=== PATIENT | female | born 1945 | race Caucasian/White ===

== ENCOUNTER 2018-11-02 22:37 | Observation (INO) | payer OTHER ==
[~2018-11-02] VITALS: Ht 172.7 cm; Wt 87.6 kg
[~2018-11-02 22:37] MED LIST: CHOL400C; DULO60CA6 PO; EXEL46P TD; HYDR-877 PO; METHADONE HCL PO; NO NEW MEDS; TRAZODONE; [UNRECOGNIZED DRUG - OTHER]
[2018-11-02] MEDS ORDERED: SOD CHLORIDE 0.9% 500 ML IV STA (22:45)
[2018-11-02] MEDS ORDERED: DILTIAZEM-D5W 125MG/125ML DRIP 125 ML IV STA (22:54)
[2018-11-02] MEDS ORDERED: DILTIAZEM 25 MG INJ IV STA (22:54)
--- NOTE | 2018-11-02 23:43 | ERD ---
ER Documentation Chief Complaint Chief Complaint Weakness X 1 wk HPI This is a 72-year-old female with a past medical history of hypertension who is presenting with on and off weakness and palpitations over the last week. It recurred again this evening at around 7 PM, which is what prompted her to call an ambulance and come to the emergency department. The patient endorses feeling short of breath with palpitations and fatigue currently. She denies any chest pain. She denies lightheadedness or dizziness. She denies nausea or vomiting. She denies diaphoresis. The patient does not carry a diagnosis of an irregular heartbeat. She is not on any blood thinners. Per pin machine tender report, the patient was in atrial fibrillation with rapid ventricular response in route to the hospital with a heart rate in the 150s. The patient denies feeling sick recently. The patient denies fever or chills. The patient has had no headache or vision changes. The patient does not endorse neck or back pain. The patient denies abdominal pain. The patient denies changes to bowel movements or urination. The patient has had no focal deficits. The patient has had no weakness or numbness or tingling to the face or extremities. ROS All systems reviewed and are negative except as per history of present illness. Medications Home Meds Reported Medications Furosemide* (Furosemide*) 40 Mg Tablet, 40 MG PO DAILY for 30 Days 11/03/18 Venlafaxine Hcl* (Venlafaxine Hcl ER*) 150 Mg Cap.er.24h, 150 MG PO DAILY 11/03/18 Colchicine (Mitigare) 0.6 Mg Capsule, 0.6 MG PO DAILY 11/03/18 Trazodone Hcl* (Desyrel*) 100 Mg Tab, 100 MG PO DAILY for 30 Days, #30 11/03/18 Triamterene-HCTZ (Dyazide) 37.5 - 25 Mg Cap, 1 CAP PO DAILY for 30 Days, #30 11/03/18 Hydrocodone Bit/Acetaminophen (Vicodin Es Tablet) 1 Tab Tablet, 1 TAB PO PRN 08/29/11 Duloxetine Hcl* (Cymbalta*) 60 Mg Capsule.dr, 60 MG PO DAILY 08/29/11 Ergocalciferol (Vitamin D) 400 Unit Capsule 08/29/11 Discontinued Reported Medications [No New Meds] No Conflict Check 11/18/11 Rivastigmine* Patch (Exelon* Patch) 1 Patch Patch, 1 PATCH TD NEEDED 10/12/11 [Trazodone] No Conflict Check 08/29/11 [Tovais] No Conflict Check 08/29/11 [Methadone [id number]] LIQ No Conflict Check, 160 MG PO DAILY 08/29/11 Allergies Allergies: Coded Allergies: No Known Allergy (Unverified , 11/03/18) PMhx/Soc History of Surgery: Yes (BARRIATRIC, KNEE REPLACEMENT) Anesthesia Reaction: No Hx Neurological Disorder: No Hx Respiratory Disorders: No Hx Cardiac Disorders: Yes (A-fib) Hx Psychiatric Problems: Yes (DEPRESSION) Hx Miscellaneous Medical Probl: No Hx Alcohol Use: Yes Hx Substance Use: Yes Hx Tobacco Use: Yes Smoking Status: Former smoker FmHx Family History: No diabetes Physical Exam Vitals Vital Signs Date Temp Pulse Resp B/P (MAP) Pulse Ox O2 O2 Flow FiO2 Time Delivery Rate 11/03/18 107 16 127/75 98 Nasal 2.0 01:38 (92) Cannula 11/02/18 Nasal 2 22:57 Cannula 11/02/18 Nasal 2.0 22:57 Cannula 11/02/18 97.5 139 20 113/94 96 22:53 (100) Physical Exam Const: No apparent distress, well-developed, well-nourished Head: Normocephalic, Atraumatic Eyes: Normal Conjunctiva. Extraocular movements intact. ENT: Normal External Ears, Nose and Mouth. Neck: Full range of motion. No meningismus. Resp: Clear to auscultation bilaterally, No wheezes, rales or rhonchi Cardio: Irregularly irregular rhythm. Tachycardia. No murmurs, rubs or gallops Abd: Soft, non tender, non distended. Normal bowel sounds Skin: No petechiae or rashes Back: No midline tenderness. No CVA tenderness Ext: No cyanosis, or edema Neur: Awake and alert, oriented 4. Cranial nerves intact. No facial droop. Normal strength, sensation and coordination. Psych: Normal Mood and Affect Result Diagram: 11/02/18224911/02/182249 Results 24 hrs Laboratory Tests Test 11/02/18 22:50 White Blood Count 8.7 10^3/ul Red Blood Count 4.58 10^6/ul Hemoglobin 11.7 g/dl Hematocrit 37.3 % Mean Corpuscular Volume 81.4 fl Mean Corpuscular Hemoglobin 25.5 pg Mean Corpuscular Hemoglobin Concent 31.4 g/dl Red Cell Distribution Width 24.5 % Platelet Count 314 10^3/UL Mean Platelet Volume 8.7 fl Immature Granulocytes % 0.600 % Neutrophils % 74.1 % Lymphocytes % 14.1 % Monocytes % 9.9 % Eosinophils % 0.5 % Basophils % 0.8 % Nucleated Red Blood Cells % 0.0 /100WBC Immature Granulocytes # 0.050 10^3/ul Neutrophils # 6.4 10^3/ul Lymphocytes # 1.2 10^3/ul Monocytes # 0.9 10^3/ul Eosinophils # 0.0 10^3/ul Basophils # 0.1 10^3/ul Nucleated Red Blood Cells # 0.0 10^3/ul Prothrombin Time 14.2 Sec Prothrombin Time Ratio 1.1 INR International Normalized Ratio 1.09 Sodium Level 133 mmol/L Potassium Level 4.3 mmol/L Chloride Level 99 mmol/L Carbon Dioxide Level 24 mmol/L Anion Gap 10 Blood Urea Nitrogen 20 mg/dl Creatinine 1.30 mg/dl Est Glomerular Filtrat Rate mL/min mL/min Glucose Level 83 mg/dl Calcium Level 9.0 mg/dl Total Bilirubin 0.7 mg/dl Direct Bilirubin 0.00 mg/dl Indirect Bilirubin 0.7 mg/dl Aspartate Amino Transf (AST/SGOT) 37 IU/L Alanine Aminotransferase (ALT/SGPT) 30 IU/L Alkaline Phosphatase 121 IU/L Troponin I 0.012 ng/ml B-Type Natriuretic Peptide 7630 PG/ML Total Protein 7.3 g/dl Albumin 3.8 g/dl Globulin 3.50 g/dl Albumin/Globulin Ratio 1.08 Current Medications Medications Dose Sig/Harry Start Time Status Last (Trade) Ordered Route PRN Stop Time Admin Dose Reason Admin Sodium 500 ml @ Q1H STAT 11/02/18 DC 11/02/18 Chloride 500 mls/hr IV 22:45 23:07 11/02/18 23:44 Diltiazem 15 mg ONCE STAT 11/02/18 DC 11/02/18 HCl IV 22:54 23:06 (Cardizem Iv) 11/02/18 22:56 Diltiazem 125 ml @ 5 ONCE STAT 11/02/18 11/02/18 HCl mls/hr IV 22:54 23:16 11/03/18 23:53 Apixaban 5 mg ONCE ONCE 11/03/18 DC (Eliquis) PO 01:00 11/03/18 01:02 Ondansetron 4 mg ER BRIDGE 11/03/18 HCl (Zofran PRN IV 01:00 Inj) NAUSEA/VOMITI 11/04/18 00:59 NG 650 mg ER BRIDGE 11/03/18 Acetaminophen PRN PO 01:00 (Tylenol .MILD PAIN 11/04/18 00:59 Tab) 1-3 OR TEMP Procedures/MDM MDM The patient's presentation warrants further investigation. Previous medical records, if available, were reviewed. LABS The patient's laboratory testing was obtained and reviewed. No emergent treatment was required unless described below. CBC: No E/o systemic infection or thrombocytopenia. Mild normocytic anemia. Chemistry: No E/o severe acidosis or alkalosis or liver disease or diabetic ketoacidosis. Mild hyponatremia, not emergent. Mild acute kidney injury. PT/INR: No E/o significant coagulopathy Troponin: No E/o acute ischemia BNP: E/o heart failure versus demand ischemia EKG EKG read by me: Rate/Rhythm: Irregular irregular rhythm. Tachycardia. In a sawtooth pattern consistent with atrial flutter with a variable AV block. Intervals: Normal QRS and QTc Seymour: Normal Impression: No evidence of acute ischemia or arrhythmia IMAGING Imaging and Radiology interpretation reviewed. CXR FINDINGS: Linear opacity right lung base likely represents atelectasis. Background coarse interstitial lung markings are seen, likely chronic. Mild cardiomegaly is noted. Tortuous aorta is noted with atherosclerotic calcifications. Cardiac and mediastinal contours otherwise unremarkable. There is no pleural effusion or pneumothorax. Spinal degenerative changes noted. No acute bony abnormality identified. Remaining soft tissues unremarkable. IMPRESSION: Likely right basilar atelectasis. Mild cardiomegaly. Otherwise, no acute cardiac or pulmonary findings. Electronically viewed and signed by Gianni Miller Physician on 11/02/2018 23:57 TREATMENT/DISPOSITION The patient presents with symptoms consistent with atrial flutter. The patient's symptoms have been ongoing for a week. Her blood pressure is stable currently. I do not feel the patient would benefit from cardioversion at this time. The patient was started on Cardizem in the emergency department. The patient was also initiated on Eliquis per admitting team's instruction. The admitting team will consult cardiology in the hospital. The patient's BNP was elevated, but there is not evidence of an acute heart failure exacerbation at this time. Demand ischemia is certainly a possibility. The patient's chest xray does not reveal pneumonia or pneumothorax or pleural effusions or pulmonary edema. The patient does not have a widened mediastinum and does not have signs or symptoms concerning for thoracic aortic aneurysm or dissection. The patient does not have pneumomediastinum or signs concerning for esophageal tear or rupture. The patient has no clinical or radiographic signs of pericardial effusion or tamponade. The patient does not have pneumoperitoneum and I have decreased suspicion of viscus perforation as possible referred pain. The patient does not have a diagnosis of COPD and is not wheezing today. The patient is not tachypneic or hypoxic. The patient is breathing comfortably and without pleuritic pain. The patient is not on hormonal therapy. The patient has no history of clotting or bleeding disorders. The patient has no calf tenderness. The patient has had no hemoptysis. I have decreased suspicion for PE. The patient's troponin and EKG does not reveal cardiac ischemia. I have low suspicion for acute coronary syndrome. ADMISSION At this time, I feel that the patient requires admission for further evaluation and management. The patient will be admitted to Dr. Hearn in accordance with the patient's insurance. The patient was accepted at 12:55AM on 11/03/2018 to telemetry. Disclaimer: Inadvertent spelling and grammatical errors are likely due to EHR/dictation software use and do not reflect on the overall quality of patient care. Note that the electronic time recorded on this note does not necessarily reflect the actual time of the patient encounter. CRITICAL CARE NOTE Time: 35 minutes excluding all billable procedures. Treatments/Evaluations: The patient was at risk of hemodynamic compromise. Timing of critical care involved close serial monitoring, evaluation of the patient's medical record including previous records & current laboratory/imaging studies, potential interventions for prevention of hemodynamic/ cardiopulmonary/ neurologic compromise, maintaining tight fluid balance, and any discussions with the family and/or consultants regarding the patient's status and prognosis. Departure Diagnosis: Primary Impression: Atrial flutter Atrial flutter type: atypical Qualified Codes: I48.4 - Atypical atrial flutter Additional Impressions: Normocytic anemia Fatigue Fatigue type: unspecified Qualified Codes: R53.83 - Other fatigue Shortness of breath Tachycardia Condition: Serious KATY MAYBERRY MD Nov 02, 2018 23:43
[2018-11-03] VITALS (9 sets, daily range): BP systolic 93–125; BP diastolic 55–79; PULSE 78–114; RESP 18–22; Ht 172.7 cm; Wt 87.6 kg
[2018-11-03] MEDS ORDERED: ACETAMINOPHEN 325 MG TAB PO PRN (01:00)
[2018-11-03] MEDS ORDERED: APIXABAN 5 MG TABLET PO ONE (01:00)
[2018-11-03] MEDS ORDERED: ONDANSETRON 4 MG INJ IV PRN (01:00)
[2018-11-03] MEDS ORDERED: DYAZIDE PO (01:50)
[2018-11-03] MEDS ORDERED: VENL150C94 PO (01:50)
[2018-11-03] MEDS ORDERED: COLC0.6C3 PO (01:50)
[2018-11-03] MEDS ORDERED: FURO40TA4 PO (01:50)
[2018-11-03] MEDS ORDERED: TRAZ-150 PO (01:50)
[2018-11-03] MEDS ORDERED: METOPROLOL 25 MG TAB PO SCH (09:30)
[2018-11-03] MEDS ORDERED: METO-448 PO (09:39)
--- NOTE | 2018-11-03 09:40 | PDOCDIS ---
Discharge Instructions CONDITION [id number] Patient Condition: Brckw2y Good HOME CARE INSTRUCTIONS: Bnoth8Tv Diet Instructions: Ugatn2n Regular ACTIVITY: Manlt4Br Activity Restrictions: [id number] No Restrictions FOLLOW UP/APPOINTMENTS Follow-up Plan pcp [address] Avila 1 week HETAL ALCANTARA MD Nov 03, 2018 09:40
[2018-11-03] MEDS ORDERED: APIX2.5T PO (09:50)
--- NOTE | 2018-11-03 10:16 | HP ---
DATE OF ADMISSION: 11/03/2018 CHIEF COMPLAINT: Palpitations. HISTORY OF PRESENT ILLNESS: A 73-year-old female who presented to emergency room with complaint of p alpitations on and off x1 week. The patient had recurrent symptoms about 7:00 p.m. the night prior t o admission. She also reports shortness of breath. The patient denies any chest pain. The patient denies chest pain at rest or with exertion. No nausea or vomiting. No fevers, no abdominal pain. I nitial evaluation revealed a new onset atrial flutter. The patient was started on IV Cardizem in the emergency room with adequate heart rate control. PAST MEDICAL HISTORY: 1. Chronic pain syndrome. 2. Arthritis. 3. Chronic depression. 4. Narcotic dependence. PAST SURGICAL HISTORY: 1. Status post joint replacement. 2. Status post gastric bypass in 2005. MEDICATIONS PRIOR TO ADMISSION: 1. Lasix 40 mg daily. 2. 150 mg daily. 3. Colchicine 0.6 mg daily. 4. Trazodone 100 mg daily. 5. Triamterene 37.5 mg daily. 6. Vicodin ES as needed. 7. Cymbalta 60 mg daily. 8. Methadone 85 mg daily. ALLERGIES: THE PATIENT HAS NO KNOWN DRUG ALLERGIES. SOCIAL HISTORY: The patient lives at home. She denies any illicit drug use. She is a former smoker . The patient denies alcohol. PHYSICAL EXAMINATION: GENERAL: Well-developed, well-nourished elderly female who is in no apparent distress. VITAL SIGNS: Stable. She is afebrile. HEENT: Extraocular muscles intact. Pupils are equal and reactive to light bilaterally. Sclerae are anicteric. Oropharynx is clear and moist but poor dental hygiene. NECK: Supple, no JVD, no carotid bruits. LUNGS: Clear to auscultation bilaterally. CARDIAC: Irregularly irregular. No murmurs or gallops. ABDOMEN: Soft, nontender, nondistended, normoactive bowel sounds. EXTREMITIES: No clubbing, cyanosis, or edema. NEUROLOGICAL: Nonfocal. LABORATORY DATA: Labs show hemoglobin of 11.7, BUN 20, creatinine 1.3. ASSESSMENT: 1. A 73-year-old female with new onset atrial fibrillation/flutter, now rate controlled. 2. Gout. 3. Arthritis. 4. Narcotic dependence, on methadone. PLAN: 1. Place in tele observation. Wean off Cardizem drip. Start low dose Lopressor 2D echo, check TSH. 2. Cardiology consultation was requested. Discharge planning if okay with Dr. Avila. Dictated By: HETAL GOODRICH/TAWANNA Conf#: [id number] DID#: [id number]
--- NOTE | 2018-11-03 15:04 | RADRPT ---
Echocardiogram Report Patient Name: ESTEBAN GREWALPatient ID: [id number] : 1945 (73y 1m)Study Date: 11/03/2018 10:30:19 AM Gender: FAccession #: [id number] Tech: [facility] [place] Location: Ref.Physician: HETAL ALCANTARA Height(Cm): 173 BSA: 2.05Weight(Kg): 87.5 Quality: AdequateAccount #: Procedures: Echocardiographic Report: Transthoracic echocardiogram with complete 2D, M-Mode, and doppler examination. Indications: Evaluate Left Ventricular function, and Atrial Flutter. Measurements: 2D/M Mode Doppler Measurement Value Normal Range Measurement Value Normal Range LA Volume 125.0 [ 22.0 - 52.0 ] ml AV Peak Octavio 1.7 [ 100.0 - 170.0 ] cm/sec LA Volume Index 62 [ 16 - 34 ] ml/m2 AV Peak PG 11.0 [ 2.0 - 9.0 ] mmHg LVIDd 2D 4.5 [ 3.8 - 5.2 ] cm LVOT Peak Octavio 0.9 [ 70.0 - 110.0 ] c m/sec LVIDs 2D 3.4 [ 2.2 - 3.5 ] cm LVOT Peak PG 3.0 [ 2.0 - 6.0 ] mmHg LVPWd 2D 0.9 [ 0.6 - 0.9 ] cm MV PHT 109.0 [ 20.0 - 100.0 ] m sec IVSd 2D 1.0 [ 0.6 - 0.9 ] cm MV Decel [place] 5 EF 2D 48.2 [ 54.0 - 74.0 ] percent Lat E` Octavio 0.1 [ 10.0 - 15.0 ] cm /sec LA Dimen 2D 5.5 [ 2.7 - 3.8 ] cm Med E` Octavio 0.1 cm/sec MV PHT Peak Octavio 1.9 cm/sec MVA PHT 2.0 [ 2.0 - 4.0 ] cm2 TR Peak Octavio 2.7 [ 100.0 - 280.0 ] cm/sec TR Peak PG 29.0 mmHg PV Peak Octavio 0.9 [ 40.0 - 80.0 ] cm /sec PV Peak PG 3.0 mmHg RVSP 44.0 [ 10.0 - 36.0 ] mm Hg RA Pressure 15.0 mmHg Findings: Left Ventricle: Normal left ventricular cavity size. Normal left ventricular wall thickness. Mild left ventricular systolic dysfunction. Ejection fraction is visually estimated at 45 %. Multiple segmental wall motion abnormalities. These segments of the LV are hypokinetic apical anterior segment, inferior apex segment, anteroseptum mid segment and apical septum. Right Ventricle: Normal right ventricular size. Normal right ventricular systolic function. Left Atrium: There is severe enlargement of left atrium, best appreciated by FARSHAD of 62. Right Atrium: There is mild enlargement of right atrium. Atrial Septum: Normal atrial septum. Mitral Valve: Mitral valve leaflets appear mildly thickened. Mild mitral leaflet calcification. Moderate mitral annular calcification. Moderate to severe mitral valve regurgitation. Mitral valve Max Velocity 2.00 m/sec. MaxPG 16.00 mmHg. MeanPG 7.00 mmHg. Mitral Valve Area by PHT 2.02 cm2. Aortic Valve: No significant aortic stenosis or insufficiency. Aortic sclerosis without significant stenosis. Aortic cusps appear mildly calcified. Trileaflet aortic valve. Tricuspid Valve: Normal appearance of the tricuspid valve. Estimated peak PA systolic pressure 44 mmHg. There is moderate tricuspid regurgitation. Pulmonic Valve: Normal pulmonic valve appearance. There is trace pulmonic regurgitation. Pericardium: Normal pericardium with no significant pericardial effusion. Aorta: Normal aortic root. IVC: Dilated IVC without respiratory collapse consistent with elevated right atrial pressure. Pulmonary Artery: Normal pulmonary artery size. Conclusions: There is severe enlargement of left atrium, best appreciated by FARSHAD of 62. There is mild enlargement of right atrium. Normal left ventricular cavity size. Normal left ventricular wall thickness. Mild left ventricular systolic dysfunction. Ejection fraction is visually estimated at 45 %. Multiple segmental wall motion abnormalities. These segments of the LV are hypokinetic apical anterior segment, inferior apex segment, anteroseptum mid segment and apical septum. Mitral valve leaflets appear mildly thickened. Mild mitral leaflet calcification. Moderate mitral annular calcification. Moderate to severe mitral valve regurgitation. Mitral valve Max Velocity 2.00 m/sec. MaxPG 16.00 mmHg. MeanPG 7.00 mmHg. Mitral Valve Area by PHT 2.02 cm2. No significant aortic stenosis or insufficiency. Aortic sclerosis without significant stenosis. Aortic cusps appear mildly calcified. Trileaflet aortic valve. Normal appearance of the tricuspid valve. Estimated peak PA systolic pressure 44 mmHg. There is moderate tricuspid regurgitation. Dilated IVC without respiratory collapse consistent with elevated right atrial pressure. Electronically Signed By: Haseeb Mcconnell 2018-11-03 15:03:36 PDT
[2018-11-03] MEDS ORDERED: DIGOXIN 500 MCG INJ IV ONE (15:30)
--- NOTE | 2018-11-03 15:32 | CONS ---
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 I will give a dose of digoxin IV now. Full anticoagulation with Eliquis 5 twice daily for now was a started Patient was advised to stay in the hospital for overnight monitoring however she refuses to do so and she wants to go home. Patient was advised to make sure that she has a cardiology follow-up with or his associates. Unable to start NUNU inhibitor now due to her low blood pressure Thank you for his referral. We will continue to follow along with you MICKY LANIER MD [facility] Consultation Date/Type/Reason Admit Date/Time Nov 03, 2018 at 00:57 Date of Consultation: Nov 03, 2018 Type of Consult Cardiology Reason for Consultation Atrial fibrillation/flutter Requesting Provider: HETAL ALCANTARA MD Date/Time of Note DATE: 11/03/18 TIME: 15:26 Hx of Present Illness Interventional cardiology consultation note Chief complaint: Shortness of breath Reason for consult: Arrhythmia History of present illness: Thank you for this referral. This is a 73-year-old female with chronic pain syndrome on methadone with no known history of cardiac disorder who came in because she has had shortness of breath. She came to emergency room was noted to be in atrial flutter with heart rate around 1 40-1 50. Initially she was placed on Cardizem drip which has been taken off off. Her breathing has stabilized. She says she wants to go home because she needs to take her methadone She denies any bleeding to me. She denies any history of arrhythmias in the past Allergies: No known drug allergies Medications were reviewed as per medical reconciliation sheet Family history: No early coronary artery disease Social history: Actively smokes. Denies heavy alcohol use. Does use marijuana Past medical history: Probably hypertension, osteoarthritis chronic pain syndrome. Patient takes methadone she stated that she takes it because her legs hurt and are edematous Review of system: Patient denies all others except for above-mentioned Past Medical History Home Meds Active Scripts Apixaban* (Eliquis*) 2.5 Mg Tablet, 5 MG PO BID for 30 Days, TAB Prov:HETAL ALCANTARA MD 11/03/18 Metoprolol Tartrate* (Lopressor*) 25 Mg Tab, 25 MG PO BID for 30 Days, TAB Prov:HETAL ALCANTARA MD 11/03/18 Reported Medications Venlafaxine Hcl* (Venlafaxine Hcl ER*) 150 Mg Cap.er.24h, 150 MG PO DAILY 11/03/18 Colchicine (Mitigare) 0.6 Mg Capsule, 0.6 MG PO DAILY 11/03/18 Trazodone Hcl* (Desyrel*) 100 Mg Tab, 100 MG PO DAILY for 30 Days, #30 11/03/18 Duloxetine Hcl* (Cymbalta*) 60 Mg Capsule.dr, 60 MG PO DAILY 08/29/11 Ergocalciferol (Vitamin D) 400 Unit Capsule 08/29/11 Discontinued Reported Medications Furosemide* (Furosemide*) 40 Mg Tablet, 40 MG PO DAILY for 30 Days 11/03/18 Triamterene-HCTZ (Dyazide) 37.5 - 25 Mg Cap, 1 CAP PO DAILY for 30 Days, #30 11/03/18 [No New Meds] No Conflict Check 11/18/11 Rivastigmine* Patch (Exelon* Patch) 1 Patch Patch, 1 PATCH TD NEEDED 10/12/11 Hydrocodone Bit/Acetaminophen (Vicodin Es Tablet) 1 Tab Tablet, 1 TAB PO PRN 08/29/11 [Trazodone] No Conflict Check 08/29/11 [Tovais] No Conflict Check 08/29/11 [Methadone [id number]] LIQ No Conflict Check, 160 MG PO DAILY 08/29/11 Medications Current Medications Metoprolol Tartrate (Lopressor) 12.5 mg BID PO Last administered on 11/03/18at 10:33; Admin Dose 12.5 MG; Start 11/03/18 at 09:30 Apixaban (Eliquis) 5 mg BID PO ; Start 11/03/18 at 21:00; Status UNV Metoprolol Succinate (Toprol Xl) 25 mg DAILY PO ; Start 11/04/18 at 09:00; Status UNV Digoxin (Digoxin) 125 mcg NOW ONCE IV ; Start 11/03/18 at 15:30; Stop 4/27/19 at 15:31; Status UNV Allergies: Coded Allergies: No Known Allergy (Unverified , 11/03/18) Social History Smoking Status: Current every day smoker Exam/Review of Systems Vital Signs Vitals Vital Signs Date Temp Pulse Resp B/P (MAP) Pulse Ox O2 O2 Flow FiO2 Time Delivery Rate 11/03/18 82 12:00 11/03/18 97.6 22 102/55 96 Nasal 2.0 11:38 (71) Cannula Intake and Output 11/02/18 11/02/18 11/03/18 1515:00 23:00 07:00 IntakeIntake Total 50 ml BalanceBalance 50 ml Exam Exam General: no acute distress HEENT: NC/AT. pupils are equal. round. NECK: . no stridor. CV: Irregularly irregular. systolic murmur; no gallop or rubs. PULM: no wheezing MILD rhonchi. GI: SOFT, NT, ND, no rebound or guarding Extremity: + B/L LE edema. no clubbing. neuro: awake and alert, OX3. Psych: calm and pleasant rectal: deferred EKG was personally reviewed showed atrial flutter with variable AV block Echocardiogram was personally reviewed which shows: There is severe enlargement of left atrium, best appreciated by FARSHAD of 62. There is mild enlargement of right atrium. Normal left ventricular cavity size. Normal left ventricular wall thickness. Mild left ventricular systolic dysfunction. Ejection fraction is visually estimated at 45 %. Multiple segmental wall motion abnormalities. These segments of the LV are hypokinetic apical anterior segment, inferior apex segment, anteroseptum mid segment and apical septum. Mitral valve leaflets appear mildly thickened. Mild mitral leaflet calcification. Moderate mitral annular calcification. Moderate to severe mitral valve regurgitation. Mitral valve Max Velocity 2.00 m/sec. MaxPG 16.00 mmHg. MeanPG 7.00 mmHg. Mitral Valve Area by PHT 2.02 cm2. No significant aortic stenosis or insufficiency. Aortic sclerosis without significant stenosis. Aortic cusps appear mildly calcified. Trileaflet aortic valve. Normal appearance of the tricuspid valve. Estimated peak PA systolic pressure 44 mmHg. There is moderate tricuspid regurgitation. Dilated IVC without respiratory collapse consistent with elevated right atrial pressure. Labs Result Diagram: 11/02/18224911/02/180 Results 24hrs Laboratory Tests Test 11/02/18 22:50 11/03/18 10:03 White Blood Count 8.7 Red Blood Count 4.58 Hemoglobin 11.7 L Hematocrit 37.3 Mean Corpuscular Volume 81.4 L Mean Corpuscular Hemoglobin 25.5 L Mean Corpuscular Hemoglobin Concent 31.4 L Red Cell Distribution Width 24.5 H Platelet Count 314 Mean Platelet Volume 8.7 Immature Granulocytes % 0.600 H Neutrophils % 74.1 Lymphocytes % 14.1 L Monocytes % 9.9 Eosinophils % 0.5 Basophils % 0.8 Nucleated Red Blood Cells % 0.0 Immature Granulocytes # 0.050 H Neutrophils # 6.4 Lymphocytes # 1.2 Monocytes # 0.9 Eosinophils # 0.0 Basophils # 0.1 Nucleated Red Blood Cells # 0.0 Prothrombin Time 14.2 Prothrombin Time Ratio 1.1 INR International Normalized Ratio 1.09 Sodium Level 133 L Potassium Level 4.3 Chloride Level 99 Carbon Dioxide Level 24 Anion Gap 10 Blood Urea Nitrogen 20 Creatinine 1.30 H Est Glomerular Filtrat Rate mL/min Glucose Level 83 Calcium Level 9.0 Total Bilirubin 0.7 Direct Bilirubin 0.00 Indirect Bilirubin 0.7 Aspartate Amino Transf (AST/SGOT) 37 Alanine Aminotransferase (ALT/SGPT) 30 Alkaline Phosphatase 121 Troponin I 0.012 B-Type Natriuretic Peptide 7630 H Total Protein 7.3 Albumin 3.8 Globulin 3.50 H Albumin/Globulin Ratio 1.08 Thyroid Stimulating Hormone (TSH) 1.550 Medications Medications Current Medications Metoprolol Tartrate (Lopressor) 12.5 mg BID PO Last administered on 11/03/18at 10:33; Admin Dose 12.5 MG; Start 11/03/18 at 09:30 Apixaban (Eliquis) 5 mg BID PO ; Start 11/03/18 at 21:00; Status UNV Metoprolol Succinate (Toprol Xl) 25 mg DAILY PO ; Start 11/04/18 at 09:00; Status UNV Digoxin (Digoxin) 125 mcg NOW ONCE IV ; Start 11/03/18 at 15:30; Stop 11/03/18 at 15:31; Status UNV MICKY LANIER MD Nov 03, 2018 15:32
[2018-11-03] MEDS ORDERED: APIXABAN 5 MG TABLET PO SCH (21:00)
[2018-11-04] MEDS ORDERED: METOPROLOL (XL) 25 MG TAB PO SCH (09:00)
== END 2018-11-03 17:20 | disposition home or self-care (01) ==
LOC: E/R 22:37 → TEL 11-03 00:57
PROVIDERS: ADMIT Internal Medicine; ATTEND Internal Medicine
DX: I48.92 Unspecified atrial flutter (principal); I48.91 Unspecified atrial fibrillation; I10 Essential (primary) hypertension; M10.9 Gout, unspecified; M19.90 Unspecified osteoarthritis, unspecified site; G89.4 Chronic pain syndrome; Z87.891 Personal history of nicotine dependence
CPT/HCPCS: 71045; 80053; 83880; 84443; 84484; 85025; 85610; 93005; 93306; G0378; J1160; J7040; 36415; 96365; 96366; 96375

== ENCOUNTER 2018-11-16 09:24 | Inpatient (IN) | payer OTHER ==
[~2018-11-16] VITALS: Ht 170.2 cm; Wt 85.5 kg
[~2018-11-16 09:24] MED LIST changes: +APIX2.5T PO; +COLC0.6C3 PO; -EXEL46P TD; -HYDR-877 PO; -METHADONE HCL PO; +METO-448 PO; -NO NEW MEDS; +TRAZ-150 PO; -TRAZODONE; +VENL150C94 PO; -[UNRECOGNIZED DRUG - OTHER]
[2018-11-16] MEDS ORDERED: SODIUM CHLORIDE 0.9% 1L BAG IV* STA (09:36)
[2018-11-16] MEDS ORDERED: CEFTRIAXONE 1 GM/50 ML (PMX) 50 ML IVPB ONE (10:00)
[2018-11-16] MEDS ORDERED: TRIA1CAP PO (10:53)
[2018-11-16] MEDS ORDERED: CALC1TAB93 PO (10:54)
[2018-11-16] MEDS ORDERED: AZITHROMYCIN 500MG/NS (PMX) 250 ML IVPB ONE (11:00)
--- NOTE | 2018-11-16 11:38 | ERD ---
ER Documentation Chief Complaint Chief Complaint BIBA D/T WEAKNESS X3 DAYS HPI 73-year-old female brought to the emergency department by paramedics for complaint of weakness. Patient is a poor historian but is complaining of generalized without focal weakness. No further history is available from the patient. I have reviewed the composite technician pre-hospital care. Pre-hospital vital signs were reviewed. Pre-hospital diagnostic tests were reviewed. ROS All systems reviewed and are negative except as per history of present illness. Medications Home Meds Active Scripts Apixaban* (Eliquis*) 2.5 Mg Tablet, 5 MG PO BID for 30 Days, TAB Prov:HETAL ALCANTARA MD 11/03/18 Metoprolol Tartrate* (Lopressor*) 25 Mg Tab, 25 MG PO BID for 30 Days, TAB Prov:HETAL ALCANTARA MD 11/03/18 Reported Medications Calcium Carbonate/Vitamin D3 (OYSTER SHELL 500 MG + VIT D TB) 1 Each Tablet, 1 EACH PO DAILY, TAB 11/16/18 Triamterene/Hydrochlorothiazid (Dyazide 37.5-25 Capsule) 1 Each Capsule, 1 EACH PO DAILY, CAP 11/16/18 Venlafaxine Hcl* (Venlafaxine Hcl ER*) 150 Mg Cap.er.24h, 150 MG PO DAILY 11/03/18 Colchicine (Mitigare) 0.6 Mg Capsule, 0.6 MG PO DAILY 11/03/18 Trazodone Hcl* (Desyrel*) 100 Mg Tab, 100 MG PO DAILY for 30 Days, #30 11/03/18 Discontinued Reported Medications Duloxetine Hcl* (Cymbalta*) 60 Mg Capsule.dr, 60 MG PO DAILY 08/29/11 Ergocalciferol (Vitamin D) 400 Unit Capsule 08/29/11 Allergies Allergies: Coded Allergies: No Known Allergy (Unverified , 11/16/18) PMhx/Soc History of Surgery: Yes (R KNEE REPLACEMENT) Anesthesia Reaction: No Hx Neurological Disorder: No Hx Respiratory Disorders: No Hx Cardiac Disorders: Yes (HTN, AFIB) Hx Psychiatric Problems: Yes (DEPRESSION) Hx Miscellaneous Medical Probl: Yes (USES METHADONE EVERY DAY; DEPRESSION) Hx Alcohol Use: Yes Hx Substance Use: Yes Hx Tobacco Use: Yes Smoking Status: Current every day smoker FmHx Noncontributory for chief complaint Physical Exam Vitals Vital Signs Date Temp Pulse Resp B/P (MAP) Pulse Ox O2 O2 Flow FiO2 Time Delivery Rate 11/16/18 97.9 135 22 103/79 92 Nasal 11:04 (87) Cannula 11/16/18 Nasal 2 10:07 Cannula 11/16/18 97.5 129 15 101/72 93 10:00 (82) Physical Exam GENERAL: Frail, elderly female. Mucous membranes slightly dry HEENT: Pupils equal, round, and reactive to light. EOMI. There is no scleral icterus. NECK: C-spine is soft and supple, there is no meningismus. There is no cervical lymphadenopathy. LUNGS: Clear to auscultation bilaterally. There are no rales, wheezes or rhonchi. HEART: Rapid irregularly regular rate and rhythm with no murmurs ABDOMEN: Soft, non-tender, non-distended. There are bowel sounds in all four quadrants. No rebound or guarding. EXTREMITIES: There is no peripheral cyanosis or edema. No focal swelling or erythema. NEURO: Moving all 4 extremities with 5 out of 5 strength. Awake and alert but without significant insight into her presentation. She is slightly agitated SKIN: There is no apparent rash or petechiae. HEME/LYMPHATIC: There is no evidence of excessive bruising or lymphedema. PSYCHIATRIC: The patient does not appear anxious or depressed. Result Diagram: 11/16/1894711/16/18947 Results 24 hrs Laboratory Tests Test 11/16/18 09:48 11/16/18 09:53 White Blood Count 13.0 10^3/ul Red Blood Count 5.22 10^6/ul Hemoglobin 13.6 g/dl Hematocrit 42.6 % Mean Corpuscular Volume 81.6 fl Mean Corpuscular Hemoglobin 26.1 pg Mean Corpuscular Hemoglobin Concent 31.9 g/dl Red Cell Distribution Width 24.8 % Platelet Count 343 10^3/UL Mean Platelet Volume 8.9 fl Immature Granulocytes % 0.500 % Neutrophils % 86.7 % Lymphocytes % 6.0 % Monocytes % 6.6 % Eosinophils % 0.0 % Basophils % 0.2 % Nucleated Red Blood Cells % 0.0 /100WBC Immature Granulocytes # 0.070 10^3/ul Neutrophils # 11.2 10^3/ul Lymphocytes # 0.8 10^3/ul Monocytes # 0.9 10^3/ul Eosinophils # 0.0 10^3/ul Basophils # 0.0 10^3/ul Nucleated Red Blood Cells # 0.0 10^3/ul Prothrombin Time 20.3 Sec Prothrombin Time Ratio 1.6 INR International Normalized Ratio 1.73 Activated Partial Thromboplast Time 29.6 Sec Sodium Level 135 mmol/L Potassium Level 4.6 mmol/L Chloride Level 96 mmol/L Carbon Dioxide Level 25 mmol/L Anion Gap 14 Blood Urea Nitrogen 31 mg/dl Creatinine 1.19 mg/dl Est Glomerular Filtrat Rate mL/min mL/min Glucose Level 52 mg/dl Calcium Level 9.2 mg/dl Total Bilirubin 2.3 mg/dl Direct Bilirubin 0.90 mg/dl Indirect Bilirubin 1.4 mg/dl Aspartate Amino Transf (AST/SGOT) 2574 IU/L Alanine Aminotransferase (ALT/SGPT) Pending Alkaline Phosphatase 101 IU/L Troponin I 0.070 ng/ml Total Protein 7.0 g/dl Albumin 3.5 g/dl Globulin 3.50 g/dl Albumin/Globulin Ratio 1.00 POC Venous Lactate 3.0 mmol/L Current Medications Medications Dose Sig/Harry Start Time Status Last (Trade) Ordered Route PRN Stop Time Admin Dose Reason Admin Sodium 1,800 ml BOLUS OVER 2 11/16/18 DC 11/16/18 Chloride HOURS STAT 09:36 10:19 (NS) IV* 11/16/18 09:37 Ceftriaxone 50 ml @ ONCE ONCE 11/16/18 DC 11/16/18 Sodium 100 mls/hr IVPB 10:00 10:20 11/16/18 10:29 Azithromycin 250 ml @ ONCE ONCE 11/16/18 11/16/18 250 mls/hr IVPB 11:00 11:30 11/16/18 11:59 Procedures/MDM Patient was taken to a room, seen and evaluated. Comfort measures were initiated. Diagnostic tests were ordered and reviewed. 3 LEAD RHYTHM STRIP: Atrial fibrillation with rapid ventricular response EK lead EKG reviewed by myself: Atrial fibrillation with rapid ventricular response Normal [place] and intervals Nonspecific ST and T wave changes without ST elevation Impression: A. fib with RVR RADIOLOGY: Reviewed with the radiologist CONSULTATION: Hospitalist was notified for admission REEVALUATION: 1135: Diagnostic tests were appreciated. IV fluids were ongoing. Patient remained normotensive, but tachycardic. Patient will continue to have IV fluids with reevaluation of heart rate pending completion of the bolus. MEDICAL DECISION MAKIN-year old female presents the emerge with generalized weakness. Differential diagnosis entertained was broad and potential high acuity. At this time, her weakness is general and not focal with no evidence of stroke. She shows evidence of a sepsis. Her chest x-ray is abnormal and she may have a healthcare associated pneumonia, for which she is been treated with antibiotics. Other possible sources include a urinary tract infection. She has not given us urine to analyze yet. She also has abnormal liver functions for which I have ordered an ultrasound of the abdomen to evaluate for the possibility of cholecystitis. Patient will continue on empiric antibiotics and will be admitted to the hospital for further supportive care. Sepsis Documentation SEVERE SEPSIS CRITERIA: Infectious source: Pneumonia with possibility of urinary tract infection or cholecystitis End organ damage indicated by: Lactate > 2.0 mmol/L SEPSIS MANAGEMENT Time of recognition of sepsis: Upon arrival. Time of recognition of severe sepsis: No severe sepsis at this time. Time of recognition of septic shock: No septic shock at this time. 3 HOUR BUNDLE Blood cultures x 2 before broad-spectrum antibiotics: Yes 30 ml/kg NS bolus ongoing Initial lactate >2 Repeat lactate pending SEPTIC SHOCK ASSESSMENT: No lactic acid > 4.0 No persistent hypotension (SBP < 90 or 40 mmHg drop, MAP < 65) despite 30 mL/kg IV fluid bolus VOLUME REASSESSMENT FOR SEPTIC SHOCK: Reevaluation Time: 1135 Vital signs noted per nursing note Heart rapid irregular rate & rhythm Lungs no crackles Skin warm & dry Cap Refill less than 2 seconds Peripheral pulses radially present CRITICAL CARE Critical care time 35 minutes Emergent fluid management while maintaining close respiratory support. Provision of immediate and broad-spectrum antibiotic therapy. Simultaneous assessment for possible sources in order to direct targeted therapy. Consideration for invasive and chemical support to prevent cardiopulmonary collapse. Critical care time is independent of procedures performed. Departure Diagnosis: Primary Impression: Sepsis Additional Impression: Atrial fibrillation with rapid ventricular response Condition: Serious REYNA STEPHENS November 16, 2018 11:38
[2018-11-16] MEDS ORDERED: ONDANSETRON 4 MG INJ IV PRN (12:00)
[2018-11-16] MEDS ORDERED: NACL 0.9% 3 ML SYG IV SCH (12:00)
[2018-11-16] MEDS ORDERED: ACETAMINOPHEN 325 MG TAB PO PRN (12:00)
[2018-11-16] MEDS ORDERED: DOCUSATE SODIUM 100 MG CAP PO PRN (12:00)
--- NOTE | 2018-11-16 13:16 | HP ---
DATE OF ADMISSION: 11/16/2018 CHIEF COMPLAINT: Generalized weakness. HISTORY OF PRESENT ILLNESS: A 73-year-old female with COPD and long history of tobacco use who prese nted to the Emergency Room with complaint of generalized weakness. Patient apparently had a ground l evel fall at home while she tried to get. She denies any head trauma. She denies any cough. No abd ominal pain, nausea or vomiting. No fevers or chills. Initial evaluation revealed a heart rate of 1 30 with a blood pressure 101/72. White blood cell count was elevated to 13,000. Lactate level was 3 . Chest x-ray showed possible interstitial infiltrates involving the right lower lobe. The patient has a history of gout and complained of bilateral cold feet. PAST MEDICAL HISTORY: 1. COPD. 2. Hypertension. 3. Gout. 4. Narcotic dependence, on methadone. 5. Chronic pain syndrome. SOCIAL HISTORY: The patient admits to smoking. She lives by herself. She denies alcohol. PHYSICAL EXAMINATION: GENERAL: Well-developed, well-nourished elderly female who is in no apparent distress. VITAL SIGNS: Blood pressure 101/72, pulse 130. Pulse oximetry was 93% on 2 liters per nasal cannula , temperature was 97.5. HEENT: Extraocular muscles intact. Pupils are equal and reactive to light bilaterally. Sclerae are anicteric. Oropharynx is clear and moist. NECK: Supple, no JVD, no carotid bruits. LUNGS: Bilateral rhonchi. CARDIAC: Tachycardia, no murmurs or gallops. ABDOMEN: Soft, nontender, nondistended, normoactive bowel sounds. EXTREMITIES: No edema. Bilateral feet are cold to palpation with bilateral toe discoloration. Dist al pulses were palpable. ASSESSMENT: 1. A 73-year-old female with possible right lower lobe pneumonia. 2. Rule out sepsis. 3. Chronic obstructive pulmonary disease. 4. Narcotic dependence, on methadone. 5. Gout. PLAN: 1. Place in tele observation. 2. Start empiric IV antibiotics. 3. IV fluid hydration. 4. Resume selective home medications. Dictated By: HETAL GOODRICH/TAWANNA Conf#: [id number] [facility]#: [id number]
[2018-11-16] MEDS ORDERED: OLANZAPINE 5 MG TAB PO ONE (13:30)
[2018-11-16] MEDS: SOD CHLORIDE 0.9% 1,000 ML IV SCH ×2 (14:05→23:00)
[2018-11-16] MEDS ORDERED: DILTIAZEM 25 MG INJ ONE (14:48)
[2018-11-16] MEDS ORDERED: DILTIAZEM 25 MG INJ IV ONE (15:00)
[2018-11-16] MEDS ORDERED: DILTIAZEM-D5W 125MG/125ML DRIP 125 ML IV STA (15:01)
--- NOTE | 2018-11-16 15:23 | CONS ---
Assessment/Plan Assessment/Plan Hospital Course (Demo Recall) Atrial fibrillation rapid ventricular rates SIRS Chronic systolic congestive heart failure Mitral valve regurgitation Tricuspid valve regurgitation -Patient presents with difficulty eating and drinking and overall weakness -She does appear dry on examination -Patient undergoing sepsis work-up -Has been started on IV Cardizem, titrate to maintain heart rate less than 110 with holding parameters -We will restart anticoagulation if no complication, start beta-sadi -Would give IV fluids but watch closely for decompensated congestive heart failure Consultation Date/Type/Reason Admit Date/Time Type of Consult Cardiology Reason for Consultation Atrial fibrillation Date/Time of Note DATE: 11/16/18 TIME: 15:16 Hx of Present Illness This is a 73-year-old female with past medical history of atrial fibrillation, congestive heart failure who presents with weakness and fatigue. She tells me she has been able to eat or drink in a few days. When asked why, she does not answer. She denies any chest pain, palpitations, shortness of breath. She denies any dizziness. Her main complaint is feeling tired and unable to eat. She tells me she takes multiple medications but not sure what they are and she is unsure if she takes them on a regular basis. 12 point review of systems was performed with all pertinent positives and negatives mentioned above and all else is negative Past Medical History Atrial fibrillation Chronic pain Medical History: congestive heart failure, hypertension Home Meds Active Scripts Apixaban* (Eliquis*) 2.5 Mg Tablet, 5 MG PO BID for 30 Days, TAB Prov:HETAL ALCANTARA MD 11/03/18 Metoprolol Tartrate* (Lopressor*) 25 Mg Tab, 25 MG PO BID for 30 Days, TAB Prov:HETAL ALCANTARA MD 11/03/18 Reported Medications Calcium Carbonate/Vitamin D3 (OYSTER SHELL 500 MG + VIT D TB) 1 Each Tablet, 1 EACH PO DAILY, TAB 11/16/18 Triamterene/Hydrochlorothiazid (Dyazide 37.5-25 Capsule) 1 Each Capsule, 1 EACH PO DAILY, CAP 11/16/18 Venlafaxine Hcl* (Venlafaxine Hcl ER*) 150 Mg Cap.er.24h, 150 MG PO DAILY 11/03/18 Colchicine (Mitigare) 0.6 Mg Capsule, 0.6 MG PO DAILY 11/03/18 Trazodone Hcl* (Desyrel*) 100 Mg Tab, 100 MG PO DAILY for 30 Days, #30 11/03/18 Discontinued Reported Medications Duloxetine Hcl* (Cymbalta*) 60 Mg Capsule.dr, 60 MG PO DAILY 08/29/11 Ergocalciferol (Vitamin D) 400 Unit Capsule 08/29/11 Medications Current Medications Sodium Chloride 1,000 ml @ 100 mls/hr Q10H IV Last administered on 11/16/18at 14:05; Admin Dose 100 MLS/HR; Start 11/16/18 at 11:45 IV Flush (NS 3 ml) 3 ml PER PROTOCOL IV ; Start 11/16/18 at 12:00 Ondansetron HCl (Zofran Inj) 4 mg Q6H PRN IV NAUSEA/VOMITING; Start 11/16/18 at 12:00 Acetaminophen (Tylenol Tab) 650 mg Q6H PRN PO .PAIN 1-3 OR TEMP; Start 11/16/18 at 12:00 Zolpidem Tartrate (Ambien) 5 mg QHS PRN PO .INSOMNIA; Start 11/16/18 at 12:00 Docusate Sodium (Colace) 100 mg Q12H PRN PO .CONSTIPATION; Start 11/16/18 at 12:00 Pantoprazole (Protonix Tab) 40 mg DAILY@06 PO ; Start 11/17/18 at 06:00 Piperacillin Sod/ Tazobactam Sod 100 ml @ 200 mls/hr Q8 IVPB ; Start 11/16/18 at 14:00 Diltiazem HCl 125 ml @ 5 mls/hr TITRATE STAT IV ; Start 11/16/18 at 15:01; Stop 11/17/18 at 16:00 Allergies: Coded Allergies: No Known Allergy (Unverified , 11/16/18) Family History Significant Family History: no pertinent family hx Social History Smoking Status: Current every day smoker Exam/Review of Systems Vital Signs Vitals Vital Signs Date Temp Pulse Resp B/P (MAP) Pulse Ox O2 O2 Flow FiO2 Time Delivery Rate 11/16/18 97.9 122 18 111/68 91 Nasal 14:58 (82) Cannula 11/16/18 4.0 13:32 Exam Constitutional: alert (No apparent distress, requires frequent redirection when asking questions, moving around in bed) Head: normocephalic Respiratory: other (Coarse breath sounds bilaterally, no wheezing) Cardiovascular: irregular rhythm, systolic murmur Gastrointestinal: soft, non-tender, bowel sounds Extremities: other (Trace lower extremity edema) Labs Result Diagram: 11/16/18 0948 11/16/18 0948 Results 24hrs Laboratory Tests Test 11/16/18 09:48 11/16/18 09:53 11/16/18 13:25 11/16/18 13:48 White Blood Count 13.0 #H Red Blood Count 5.22 Hemoglobin 13.6 Hematocrit 42.6 Mean Corpuscular 81.6 L Volume Mean Corpuscular 26.1 L Hemoglobin Mean Corpuscular 31.9 L Hemoglobin Concent Red Cell 24.8 H Distribution Width Platelet Count 343 Mean Platelet Volume 8.9 Immature 0.500 H Granulocytes % Neutrophils % 86.7 H Lymphocytes % 6.0 L Monocytes % 6.6 Eosinophils % 0.0 Basophils % 0.2 Nucleated Red Blood 0.0 Cells % Immature 0.070 H Granulocytes # Neutrophils # 11.2 H Lymphocytes # 0.8 Monocytes # 0.9 Eosinophils # 0.0 Basophils # 0.0 Nucleated Red Blood 0.0 Cells # Prothrombin Time 20.3 #H Prothrombin Time 1.6 Ratio INR International 1.73 Normalized Ratio Activated 29.6 Partial Thromboplast Time Sodium Level 135 Potassium Level 4.6 Chloride Level 96 L Carbon Dioxide Level 25 Anion Gap 14 H Blood Urea Nitrogen 31 H Creatinine 1.19 H Est Glomerular Filtrat Rate mL/min Glucose Level 52 L Uric Acid 12.2 H Calcium Level 9.2 Total Bilirubin 2.3 H Direct Bilirubin 0.90 H Indirect Bilirubin 1.4 H Aspartate Amino 2574 H Transf (AST/SGOT) Alanine 1101 H Aminotransferase (AL T/SGPT) Alkaline Phosphatase 101 Troponin I 0.070 Total Protein 7.0 Albumin 3.5 Globulin 3.50 H Albumin/Globulin 1.00 Ratio POC Venous Lactate 3.0 *H 2.4 *H Lactic Acid Level 3.2 *H Imaging Imaging ECG with atrial fibrillation with rapid ventricular rates at 118 bpm, left posterior fascicular block, nonspecific ST abnormalities Medications Medications Current Medications Sodium Chloride 1,000 ml @ 100 mls/hr Q10H IV Last administered on 11/16/18at 14:05; Admin Dose 100 MLS/HR; Start 11/16/18 at 11:45 IV Flush (NS 3 ml) 3 ml PER PROTOCOL IV ; Start 11/16/18 at 12:00 Ondansetron HCl (Zofran Inj) 4 mg Q6H PRN IV NAUSEA/VOMITING; Start 11/16/18 at 12:00 Acetaminophen (Tylenol Tab) 650 mg Q6H PRN PO .PAIN 1-3 OR TEMP; Start 11/16/18 at 12:00 Zolpidem Tartrate (Ambien) 5 mg QHS PRN PO .INSOMNIA; Start 11/16/18 at 12:00 Docusate Sodium (Colace) 100 mg Q12H PRN PO .CONSTIPATION; Start 11/16/18 at 12:00 Pantoprazole (Protonix Tab) 40 mg DAILY@06 PO ; Start 11/17/18 at 06:00 Piperacillin Sod/ Tazobactam Sod 100 ml @ 200 mls/hr Q8 IVPB ; Start 11/16/18 at 14:00 Diltiazem HCl 125 ml @ 5 mls/hr TITRATE STAT IV ; Start 11/16/18 at 15:01; Stop 11/17/18 at 16:00 David Benitez DO November 16, 2018 15:23
[2018-11-16 16:23] VITALS: Ht 170.2 cm; Wt 85.5 kg
[2018-11-16 16:30] VITALS: BP 129/88; PULSE 69; RESP 19
[2018-11-16 16:37] VITALS: PULSE 118
[2018-11-16] MEDS: PIPER-TAZO 3.375 GM IV (PMX) 100 ML IVPB SCH ×2 (17:05→22:43)
[2018-11-16 19:10] VITALS: BP 116/91; PULSE 72; RESP 20
[2018-11-16 20:00] VITALS: PULSE 114
[2018-11-16] MEDS ORDERED: morphine 4 MG/ML VIAL IV PRN (21:00)
[2018-11-16] MEDS: APIXABAN 5 MG TABLET PO SCH (22:42)
[2018-11-16] MEDS: METOPROLOL 25 MG TAB PO SCH (22:43)
[2018-11-17] VITALS (12 sets, daily range): BP systolic 86–144; BP diastolic 52–79; PULSE 74–122; RESP 18–22
[2018-11-17] MEDS: PIPER-TAZO 3.375 GM IV (PMX) 100 ML IVPB SCH ×3 (06:26→21:36)
[2018-11-17] MEDS: PANTOPRAZOLE (EC) 40 MG TAB PO SCH (06:26)
[2018-11-17] MEDS: SOD CHLORIDE 0.9% 1,000 ML IV SCH ×3 (07:45→21:36)
[2018-11-17] MEDS: APIXABAN 5 MG TABLET PO SCH ×2 (08:51→21:35)
[2018-11-17] MEDS: METOPROLOL 25 MG TAB PO SCH (08:52)
--- NOTE | 2018-11-17 10:58 | CONS ---
Consult Date/Type/Reason Admit Date/Time November 16, 2018 at 11:30 Initial Consult Date Type of Consultation: cv Date/Time of Note DATE: 11/17/18 TIME: 10:55 Subjective Cardiology follow-up progress note Subjective: Discussed with the staff telemetry was reviewed patient with atrial fibrillation heart rate has remained stable though. Patient denies any chest pain or pressure to me. She stated that she was taking her medication at home but does not appear to be taking any of the new medication she was provided recently for her heart failure and anticoagulation Objective: General: no acute distress HEENT: NC/AT. pupils are equal. round. NECK: NO JVD. no stridor. CV: Irregularly irregular. systolic murmur; no gallop or rubs. PULM: no wheezing or rhonchi. GI: SOFT, NT, ND, no rebound or guarding Extremity: trace B/L LE edema. no clubbing. neuro: awake and alert, OX3. Psych: calm rectal: deferred Objective Vitals Vital Signs Date Temp Pulse Resp B/P (MAP) Pulse Ox O2 O2 Flow FiO2 Time Delivery Rate 11/17/18 98.2 85 19 86/58 (67) 95 08:38 11/17/18 Nasal 4.0 08:30 Cannula Intake and Output 11/16/18 11/16/18 11/17/18 1515:00 23:00 07:00 IntakeIntake Total 540 ml 875 ml BalanceBalance 540 ml 875 ml Results/Medications Result Diagram: 11/17/18 0535 11/17/18 0535 Results 24 hrs Laboratory Tests Test 11/16/18 13:25 11/16/18 13:48 11/17/18 05:35 POC Venous Lactate 2.4 *H Lactic Acid Level 3.2 *H White Blood Count 13.0 H Red Blood Count 4.67 Hemoglobin 12.2 Hematocrit 38.0 Mean Corpuscular Volume 81.4 L Mean Corpuscular Hemoglobin 26.1 L Mean Corpuscular Hemoglobin Concent 32.1 Red Cell Distribution Width 24.9 H Platelet Count 297 Mean Platelet Volume 9.1 Immature Granulocytes % 0.500 H Neutrophils % 84.1 H Lymphocytes % 7.4 L Monocytes % 7.6 Eosinophils % 0.2 Basophils % 0.2 Nucleated Red Blood Cells % 0.0 Immature Granulocytes # 0.070 H Neutrophils # 11.0 H Lymphocytes # 1.0 Monocytes # 1.0 H Eosinophils # 0.0 Basophils # 0.0 Nucleated Red Blood Cells # 0.0 Sodium Level 137 Potassium Level 3.7 Chloride Level 102 Carbon Dioxide Level 27 Anion Gap 8 Blood Urea Nitrogen 33 H Creatinine 1.12 H Est Glomerular Filtrat Rate mL/min Glucose Level 54 L Hemoglobin A1c 5.2 Calcium Level 8.4 Total Bilirubin 0.9 Direct Bilirubin 0.10 # Indirect Bilirubin 0.8 Aspartate Amino Transf (AST/SGOT) 1464 H Alanine Aminotransferase (ALT/SGPT) 796 H Alkaline Phosphatase 104 Total Protein 5.7 #L Albumin 2.6 L Globulin 3.10 Albumin/Globulin Ratio 0.83 Home Meds Active Scripts Apixaban* (Eliquis*) 2.5 Mg Tablet, 5 MG PO BID for 30 Days, TAB Prov:HETAL ALCANTARA MD 11/03/18 Metoprolol Tartrate* (Lopressor*) 25 Mg Tab, 25 MG PO BID for 30 Days, TAB Prov:HETAL ALCANTARA MD 11/03/18 Reported Medications Calcium Carbonate/Vitamin D3 (OYSTER SHELL 500 MG + VIT D TB) 1 Each Tablet, 1 EACH PO DAILY, TAB 11/16/18 Triamterene/Hydrochlorothiazid (Dyazide 37.5-25 Capsule) 1 Each Capsule, 1 EACH PO DAILY, CAP 11/16/18 Venlafaxine Hcl* (Venlafaxine Hcl ER*) 150 Mg Cap.er.24h, 150 MG PO DAILY 11/03/18 Colchicine (Mitigare) 0.6 Mg Capsule, 0.6 MG PO DAILY 11/03/18 Trazodone Hcl* (Desyrel*) 100 Mg Tab, 100 MG PO DAILY for 30 Days, #30 11/03/18 Discontinued Reported Medications Duloxetine Hcl* (Cymbalta*) 60 Mg Capsule.dr, 60 MG PO DAILY 08/29/11 Ergocalciferol (Vitamin D) 400 Unit Capsule 08/29/11 Medications Current Medications Sodium Chloride 1,000 ml @ 100 mls/hr Q10H IV Last administered on 11/16/18at 23:00; Admin Dose 100 MLS/HR; Start 11/16/18 at 11:45 IV Flush (NS 3 ml) 3 ml PER PROTOCOL IV ; Start 11/16/18 at 12:00 Ondansetron HCl (Zofran Inj) 4 mg Q6H PRN IV NAUSEA/VOMITING; Start 11/16/18 at 12:00 Acetaminophen (Tylenol Tab) 650 mg Q6H PRN PO .PAIN 1-3 OR TEMP Last administered on 11/16/18at 20:11; Admin Dose 650 MG; Start 11/16/18 at 12:00 Zolpidem Tartrate (Ambien) 5 mg QHS PRN PO .INSOMNIA; Start 11/16/18 at 12:00 Docusate Sodium (Colace) 100 mg Q12H PRN PO .CONSTIPATION; Start 11/16/18 at 12:00 Pantoprazole (Protonix Tab) 40 mg DAILY@06 PO Last administered on 11/17/18at 0 6:26; Admin Dose 40 MG; Start 11/17/18 at 06:00 Piperacillin Sod/ Tazobactam Sod 100 ml @ 200 mls/hr Q8 IVPB Last administered on 11/17/18at 06:26; Admin Dose 200 MLS/HR; Start 11/16/18 at 14:00 Diltiazem HCl 125 ml @ 5 mls/hr TITRATE STAT IV Last administered on 11/16/18at 15:40; Admin Dose 5 MLS/HR; Start 11/16/18 at 15:01; Stop 11/17/18 at 16:00 Metoprolol Tartrate (Lopressor) 25 mg BID PO Last administered on 11/17/18at 08:52; Admin Dose 25 MG; Start 11/16/18 at 21:00 Apixaban (Eliquis) 5 mg BID PO Last administered on 11/17/18at 08:51; Admin Dose 5 MG; Start 11/16/18 at 21:00 Morphine Sulfate (morphine) 4 mg Q2 PRN IV SEVERE PAIN LEVEL 7-10; Start 11/16/18 at 21:00 Methadone HCl (Methadone Liq (Ped)) 85 mg DAILY PO ; Start 11/17/18 at 11:00 Assessment/Plan Hospital Course (Demo Recall) Atrial fibrillation/flutter Cardiomyopathy Possible sepsis Lactic acidosis Noncompliance Chronic pain syndrome on methadone Recommendations: Continue with Eliquis. Stop the Cardizem drip. We will start the patient on Toprol-XL. May need to be also on digoxin if needed for the heart rate control Importance of compliant with the medication cussed with the patient Continue to monitor on telemetry Thank you for his referral. We will continue to follow along with you MICKY LANIER MD [facility] MICKY LANIER MD November 17, 2018 10:58
[2018-11-17] MEDS: METHADONE (1 MG/1 ML PO SYG) PO SCH (11:39)
--- NOTE | 2018-11-17 11:52 | PN ---
Date/Time of Note Date/Time of Note DATE: 11/17/18 TIME: 11:50 Assessment/Plan VTE Prophylaxis Risk score (from Ns)>0 risk: 5 SCD applied (from Ns): Yes Pharmacological prophylaxis: apixaban Lines/Catheters IV Catheter Type (from Nrs): Saline Lock Urinary Cath still in place: No Assessment/Plan Assessment/Plan 1. cards: a fib with rvr, no w controlled, dilt gtt weaned and now on toprol xl, cont to monitor rate control, paul with increased activity 2. copd, no current wheeze 3. elevated LFT no clear etiology, s/p aram, check viral hepatitis, monitor, possibly hepatic congestion related to a fib? 4. no current evidence of sepsis, hold abx Result Diagram: 11/17/1835 11/17/1835 Results 24hrs Laboratory Tests Test 11/16/18 13:25 11/16/18 13:48 11/17/18 05:35 POC Venous Lactate 2.4 *H Lactic Acid Level 3.2 *H White Blood Count 13.0 H Red Blood Count 4.67 Hemoglobin 12.2 Hematocrit 38.0 Mean Corpuscular Volume 81.4 L Mean Corpuscular Hemoglobin 26.1 L Mean Corpuscular Hemoglobin Concent 32.1 Red Cell Distribution Width 24.9 H Platelet Count 297 Mean Platelet Volume 9.1 Immature Granulocytes % 0.500 H Neutrophils % 84.1 H Lymphocytes % 7.4 L Monocytes % 7.6 Eosinophils % 0.2 Basophils % 0.2 Nucleated Red Blood Cells % 0.0 Immature Granulocytes # 0.070 H Neutrophils # 11.0 H Lymphocytes # 1.0 Monocytes # 1.0 H Eosinophils # 0.0 Basophils # 0.0 Nucleated Red Blood Cells # 0.0 Sodium Level 137 Potassium Level 3.7 Chloride Level 102 Carbon Dioxide Level 27 Anion Gap 8 Blood Urea Nitrogen 33 H Creatinine 1.12 H Est Glomerular Filtrat Rate mL/min Glucose Level 54 L Hemoglobin A1c 5.2 Calcium Level 8.4 Total Bilirubin 0.9 Direct Bilirubin 0.10 # Indirect Bilirubin 0.8 Aspartate Amino Transf (AST/SGOT) 1464 H Alanine Aminotransferase (ALT/SGPT) 796 H Alkaline Phosphatase 104 Total Protein 5.7 #L Albumin 2.6 L Globulin 3.10 Albumin/Globulin Ratio 0.83 Subjective 24 Hr Interval Summary Free Text/Dictation no complaints feeling better, breathing easier, min activity Exam/Review of Systems Exam Vitals Vital Signs Date Temp Pulse Resp B/P (MAP) Pulse Ox O2 O2 Flow FiO2 Time Delivery Rate 11/17/18 98.0 74 22 99/68 (78) 96 Nasal 11:29 Cannula 11/17/18 4.0 08:30 Intake and Output 11/16/18 11/16/18 11/17/18 1515:00 23:00 07:00 IntakeIntake Total 540 ml 875 ml BalanceBalance 540 ml 875 ml Exam nad, ctab, irreg, rate controlled Results Results 24hrs Laboratory Tests Test 11/16/18 13:25 11/16/18 13:48 11/17/18 05:35 POC Venous Lactate 2.4 *H Lactic Acid Level 3.2 *H White Blood Count 13.0 H Red Blood Count 4.67 Hemoglobin 12.2 Hematocrit 38.0 Mean Corpuscular Volume 81.4 L Mean Corpuscular Hemoglobin 26.1 L Mean Corpuscular Hemoglobin Concent 32.1 Red Cell Distribution Width 24.9 H Platelet Count 297 Mean Platelet Volume 9.1 Immature Granulocytes % 0.500 H Neutrophils % 84.1 H Lymphocytes % 7.4 L Monocytes % 7.6 Eosinophils % 0.2 Basophils % 0.2 Nucleated Red Blood Cells % 0.0 Immature Granulocytes # 0.070 H Neutrophils # 11.0 H Lymphocytes # 1.0 Monocytes # 1.0 H Eosinophils # 0.0 Basophils # 0.0 Nucleated Red Blood Cells # 0.0 Sodium Level 137 Potassium Level 3.7 Chloride Level 102 Carbon Dioxide Level 27 Anion Gap 8 Blood Urea Nitrogen 33 H Creatinine 1.12 H Est Glomerular Filtrat Rate mL/min Glucose Level 54 L Hemoglobin A1c 5.2 Calcium Level 8.4 Total Bilirubin 0.9 Direct Bilirubin 0.10 # Indirect Bilirubin 0.8 Aspartate Amino Transf (AST/SGOT) 1464 H Alanine Aminotransferase (ALT/SGPT) 796 H Alkaline Phosphatase 104 Total Protein 5.7 #L Albumin 2.6 L Globulin 3.10 Albumin/Globulin Ratio 0.83 Medications Medication Current Medications Sodium Chloride 1,000 ml @ 100 mls/hr Q10H IV Last administered on 11/16/18at 23:00; Admin Dose 100 MLS/HR; Start 11/16/18 at 11:45 IV Flush (NS 3 ml) 3 ml PER PROTOCOL IV ; Start 11/16/18 at 12:00 Ondansetron HCl (Zofran Inj) 4 mg Q6H PRN IV NAUSEA/VOMITING; Start 11/16/18 at 12:00 Acetaminophen (Tylenol Tab) 650 mg Q6H PRN PO .PAIN 1-3 OR TEMP Last administered on 11/16/18at 20:11; Admin Dose 650 MG; Start 11/16/18 at 12:00 Zolpidem Tartrate (Ambien) 5 mg QHS PRN PO .INSOMNIA; Start 11/16/18 at 12:00 Docusate Sodium (Colace) 100 mg Q12H PRN PO .CONSTIPATION; Start 11/16/18 at 12:00 Pantoprazole (Protonix Tab) 40 mg DAILY@06 PO Last administered on 11/17/18at 06:26; Admin Dose 40 MG; Start 11/17/18 at 06:00 Piperacillin Sod/ Tazobactam Sod 100 ml @ 200 mls/hr Q8 IVPB Last administered on 11/17/18at 06:26; Admin Dose 200 MLS/HR; Start 11/16/18 at 14:00 Diltiazem HCl 125 ml @ 5 mls/hr TITRATE STAT IV Last administered on 11/16/18at 15:40; Admin Dose 5 MLS/HR; Start 11/16/18 at 15:01; Stop 11/17/18 at 16:00 Apixaban (Eliquis) 5 mg BID PO Last administered on 11/17/18at 08:51; Admin Dose 5 MG; Start 11/16/18 at 21:00 Morphine Sulfate (morphine) 4 mg Q2 PRN IV SEVERE PAIN LEVEL 7-10; Start 11/16/18 at 21:00 Methadone HCl (Methadone Liq (Ped)) 85 mg DAILY PO ; Start 11/17/18 at 11:00 Metoprolol Succinate (Toprol Xl) 25 mg DAILY PO ; Start 11/18/18 at 09:00 DOROTEO FARLEY MD November 17, 2018 11:52
[2018-11-17] MEDS: ZOLPIDEM 5 MG TAB PO PRN (21:35)
[2018-11-18] VITALS (11 sets, daily range): BP systolic 108–138; BP diastolic 72–78; PULSE 65–138; RESP 18–22
[2018-11-18] MEDS: PANTOPRAZOLE (EC) 40 MG TAB PO SCH (05:33)
[2018-11-18] MEDS: PIPER-TAZO 3.375 GM IV (PMX) 100 ML IVPB SCH (05:33)
[2018-11-18] MEDS: APIXABAN 5 MG TABLET PO SCH ×2 (08:15→20:44)
[2018-11-18] MEDS ORDERED: METOPROLOL (XL) 25 MG TAB PO SCH (09:00)
[2018-11-18] MEDS: SOD CHLORIDE 0.9% 1,000 ML IV SCH (10:59)
[2018-11-18] MEDS: METHADONE (1 MG/1 ML PO SYG) PO SCH (10:59)
[2018-11-18] MEDS ORDERED: METOPROLOL (XL) 25 MG TAB PO ONE (12:00)
--- NOTE | 2018-11-18 12:06 | PN ---
Date/Time of Note Date/Time of Note DATE: 11/18/18 TIME: 12:04 Assessment/Plan VTE Prophylaxis Risk score (from Ns)>0 risk: 7 SCD applied (from Ns): Yes SCD contraindicated: other Pharmacological prophylaxis: apixaban Lines/Catheters IV [facility] Peripheral IV Urinary Cath still in place: No Assessment/Plan Assessment/Plan 1. a fib with rvr, rate control better but still borderline, increase toprol 2. PT eval noted, patient not safe for home alone, currently refusing snf, unclear if patient has capacity for decision making, check MMSE, OT eval 3. d/c ivf and abx, observe Result Diagram: 11/18/18 0520 11/18/18 0520 Results 24hrs Laboratory Tests Test 11/18/18 05:20 White Blood Count 7.9 # Red Blood Count 4.71 Hemoglobin 12.2 Hematocrit 38.6 Mean Corpuscular Volume 82.0 Mean Corpuscular Hemoglobin 25.9 L Mean Corpuscular Hemoglobin Concent 31.6 L Red Cell Distribution Width 25.3 H Platelet Count 275 Mean Platelet Volume 8.9 Immature Granulocytes % 0.300 Neutrophils % 74.3 Lymphocytes % 15.0 Monocytes % 8.3 Eosinophils % 1.8 Basophils % 0.3 Nucleated Red Blood Cells % 0.0 Immature Granulocytes # 0.020 Neutrophils # 5.9 Lymphocytes # 1.2 Monocytes # 0.7 Eosinophils # 0.1 Basophils # 0.0 Nucleated Red Blood Cells # 0.0 Sodium Level 141 Potassium Level 3.5 Chloride Level 106 Carbon Dioxide Level 28 Anion Gap 7 Blood Urea Nitrogen 31 H Creatinine 1.01 H Est Glomerular Filtrat Rate mL/min Glucose Level 62 L Calcium Level 8.3 L Total Bilirubin 0.6 Direct Bilirubin 0.00 Indirect Bilirubin 0.6 Aspartate Amino Transf (AST/SGOT) 701 H Alanine Aminotransferase (ALT/SGPT) 605 H Alkaline Phosphatase 79 Total Protein 5.1 L Albumin 2.3 L Globulin 2.80 Albumin/Globulin Ratio 0.82 Hepatitis B Surface Antigen NEGATIVE Hepatitis C Antibody REACTIVE H Subjective 24 Hr Interval Summary Free Text/Dictation no complaints, no relaistic plan for home self care, does not acknowledge PT eval and concerns no assistqnce at home save for IHSS 120 hours/month Exam/Review of Systems Exam Vitals Vital Signs Date Temp Pulse Resp B/P (MAP) Pulse Ox O2 O2 Flow FiO2 Time Delivery Rate 11/18/18 97.8 65 22 121/76 96 Nasal 11:50 (91) Cannula 11/18/18 08:30 Intake and Output 11/17/18 11/17/18 11/18/18 1515:00 23:00 07:00 IntakeIntake Total 300 ml 500 ml 1000 ml OutputOutput Total 800 ml BalanceBalance 300 ml 500 ml 200 ml Exam nad, ctab, irreg Results Results 24hrs Laboratory Tests Test 11/18/18 05:20 White Blood Count 7.9 # Red Blood Count 4.71 Hemoglobin 12.2 Hematocrit 38.6 Mean Corpuscular Volume 82.0 Mean Corpuscular Hemoglobin 25.9 L Mean Corpuscular Hemoglobin Concent 31.6 L Red Cell Distribution Width 25.3 H Platelet Count 275 Mean Platelet Volume 8.9 Immature Granulocytes % 0.300 Neutrophils % 74.3 Lymphocytes % 15.0 Monocytes % 8.3 Eosinophils % 1.8 Basophils % 0.3 Nucleated Red Blood Cells % 0.0 Immature Granulocytes # 0.020 Neutrophils # 5.9 Lymphocytes # 1.2 Monocytes # 0.7 Eosinophils # 0.1 Basophils # 0.0 Nucleated Red Blood Cells # 0.0 Sodium Level 141 Potassium Level 3.5 Chloride Level 106 Carbon Dioxide Level 28 Anion Gap 7 Blood Urea Nitrogen 31 H Creatinine 1.01 H Est Glomerular Filtrat Rate mL/min Glucose Level 62 L Calcium Level 8.3 L Total Bilirubin 0.6 Direct Bilirubin 0.00 Indirect Bilirubin 0.6 Aspartate Amino Transf (AST/SGOT) 701 H Alanine Aminotransferase (ALT/SGPT) 605 H Alkaline Phosphatase 79 Total Protein 5.1 L Albumin 2.3 L Globulin 2.80 Albumin/Globulin Ratio 0.82 Hepatitis B Surface Antigen NEGATIVE Hepatitis C Antibody REACTIVE H Medications Medication Current Medications Sodium Chloride 1,000 ml @ 100 mls/hr Q10H IV Last administered on 11/18/18at 10:59; Admin Dose 100 MLS/HR; Start 11/16/18 at 11:45 IV Flush (NS 3 ml) 3 ml PER PROTOCOL IV ; Start 11/16/18 at 12:00 Ondansetron HCl (Zofran Inj) 4 mg Q6H PRN IV NAUSEA/VOMITING; Start 11/16/18 at 12:00 Acetaminophen (Tylenol Tab) 650 mg Q6H PRN PO .PAIN 1-3 OR TEMP Last administered on 11/16/18 20:11; Admin Dose 650 MG; Start 11/16/18 at 12:00 Zolpidem Tartrate (Ambien) 5 mg QHS PRN PO .INSOMNIA Last administered on 11/17/18 21:35; Admin Dose 5 MG; Start 11/16/18 at 12:00 Docusate Sodium (Colace) 100 mg Q12H PRN PO .CONSTIPATION; Start 11/16/18 at 12:00 Pantoprazole (Protonix Tab) 40 mg DAILY@06 PO Last administered on 11/18/18 05:33; Admin Dose 40 MG; Start 11/17/18 at 06:00 Piperacillin Sod/ Tazobactam Sod 100 ml @ 200 mls/hr Q8 IVPB Last administered on 11/18/18 05:33; Admin Dose 200 MLS/HR; Start 11/16/18 at 14:00 Apixaban (Eliquis) 5 mg BID PO Last administered on 11/18/18 08:15; Admin Dose 5 MG; Start 11/16/18 at 21:00 Morphine Sulfate (morphine) 4 mg Q2 PRN IV SEVERE PAIN LEVEL 7-10; Start 11/16/18 at 21:00 Methadone HCl (Methadone Liq (Ped)) 85 mg DAILY PO Last administered on 11/18/18 10:59; Admin Dose 85 MG; Start 11/17/18 at 11:00 Metoprolol Succinate (Toprol Xl) 25 mg DAILY PO Last administered on 11/18/18 08:16; Admin Dose 25 MG; Start 11/18/18 at 09:00 DOROTEO FARLEY MD November 18, 2018 12:06
[2018-11-18] MEDS ORDERED: DILTIAZEM 25 MG INJ IV ONE (13:00)
--- NOTE | 2018-11-18 13:30 | CONS ---
Consult Date/Type/Reason Admit Date/Time November 16, 2018 at 11:30 Initial Consult Date Type of Consultation: cv Date/Time of Note DATE: 11/18/18 TIME: 13:27 Subjective Cardiology follow-up progress note Subjective: Discussed with the staff telemetry was reviewed patient with atrial fibrillation heart rate has remained stable morning she has become more more agitated and her heart rate has been increasing to up to 140s and 150s. Patient denies any chest pain or pressure to me. Patient has been agitated and confused this morning. States that staff are trying to kill her Objective: General: no acute distress HEENT: NC/AT. pupils are equal. round. NECK: NO JVD. no stridor. CV: Irregularly irregular. systolic murmur; no gallop or rubs. PULM: no wheezing or rhonchi. GI: SOFT, NT, ND, no rebound or guarding Extremity: trace B/L LE edema. no clubbing. neuro: awake and alert, Psych: Agitated and confused rectal: deferred Echocardiogram done last month shows: There is severe enlargement of left atrium, best appreciated by FARSHAD of 62. There is mild enlargement of right atrium. Normal left ventricular cavity size. Normal left ventricular wall thickness. Mild left ventricular systolic dysfunction. Ejection fraction is visually estimated at 45 %. Multiple segmental wall motion abnormalities. These segments of the LV are hypokinetic apical anterior segment, inferior apex segment, anteroseptum mid segment and apical septum. Mitral valve leaflets appear mildly thickened. Mild mitral leaflet calcification. Moderate mitral annular calcification. Moderate to severe mitral valve regurgitation. Mitral valve Max Velocity 2.00 m/sec. MaxPG 16.00 mmHg. MeanPG 7.00 mmHg. Mitral Valve Area by PHT 2.02 cm2. No significant aortic stenosis or insufficiency. Aortic sclerosis without significant stenosis. Aortic cusps appear mildly calcified. Trileaflet aortic valve. Normal appearance of the tricuspid valve. Estimated peak PA systolic pressure 44 mmHg. There is moderate tricuspid regurgitation. Dilated IVC without respiratory collapse consistent with elevated right atrial pressure. Objective Vitals Vital Signs Date Temp Pulse Resp B/P (MAP) Pulse Ox O2 O2 Flow FiO2 Time Delivery Rate 11/18/18 97.8 65 22 121/76 96 Nasal 11:50 (91) Cannula 11/18/18 08:30 Intake and Output 11/17/18 11/17/18 11/18/18 1515:00 23:00 07:00 IntakeIntake Total 300 ml 500 ml 1000 ml OutputOutput Total 800 ml BalanceBalance 300 ml 500 ml 200 ml Results/Medications Result Diagram: 11/18/1851911/18/18519 Results 24 hrs Laboratory Tests Test 11/18/18 05:20 White Blood Count 7.9 # Red Blood Count 4.71 Hemoglobin 12.2 Hematocrit 38.6 Mean Corpuscular Volume 82.0 Mean Corpuscular Hemoglobin 25.9 L Mean Corpuscular Hemoglobin Concent 31.6 L Red Cell Distribution Width 25.3 H Platelet Count 275 Mean Platelet Volume 8.9 Immature Granulocytes % 0.300 Neutrophils % 74.3 Lymphocytes % 15.0 Monocytes % 8.3 Eosinophils % 1.8 Basophils % 0.3 Nucleated Red Blood Cells % 0.0 Immature Granulocytes # 0.020 Neutrophils # 5.9 Lymphocytes # 1.2 Monocytes # 0.7 Eosinophils # 0.1 Basophils # 0.0 Nucleated Red Blood Cells # 0.0 Sodium Level 141 Potassium Level 3.5 Chloride Level 106 Carbon Dioxide Level 28 Anion Gap 7 Blood Urea Nitrogen 31 H Creatinine 1.01 H Est Glomerular Filtrat Rate mL/min Glucose Level 62 L Calcium Level 8.3 L Total Bilirubin 0.6 Direct Bilirubin 0.00 Indirect Bilirubin 0.6 Aspartate Amino Transf (AST/SGOT) 701 H Alanine Aminotransferase (ALT/SGPT) 605 H Alkaline Phosphatase 79 Total Protein 5.1 L Albumin 2.3 L Globulin 2.80 Albumin/Globulin Ratio 0.82 Hepatitis B Surface Antigen NEGATIVE Hepatitis C Antibody REACTIVE H Home Meds Active Scripts Apixaban* (Eliquis*) 2.5 Mg Tablet, 5 MG PO BID for 30 Days, TAB Prov:HETAL ALCANTARA MD 11/03/18 Metoprolol Tartrate* (Lopressor*) 25 Mg Tab, 25 MG PO BID for 30 Days, TAB Prov:HETAL ALCANTARA MD 11/03/18 Reported Medications Calcium Carbonate/Vitamin D3 (OYSTER SHELL 500 MG + VIT D TB) 1 Each Tablet, 1 EACH PO DAILY, TAB 11/16/18 Triamterene/Hydrochlorothiazid (Dyazide 37.5-25 Capsule) 1 Each Capsule, 1 EACH PO DAILY, CAP 11/16/18 Venlafaxine Hcl* (Venlafaxine Hcl ER*) 150 Mg Cap.er.24h, 150 MG PO DAILY 11/03/18 Colchicine (Mitigare) 0.6 Mg Capsule, 0.6 MG PO DAILY 11/03/18 Trazodone Hcl* (Desyrel*) 100 Mg Tab, 100 MG PO DAILY for 30 Days, #30 11/03/18 Discontinued Reported Medications Duloxetine Hcl* (Cymbalta*) 60 Mg Capsule.dr, 60 MG PO DAILY 08/29/11 Ergocalciferol (Vitamin D) 400 Unit Capsule 08/29/11 Medications Current Medications IV Flush (NS 3 ml) 3 ml PER PROTOCOL IV ; Start 11/16/18 at 12:00 Ondansetron HCl (Zofran Inj) 4 mg Q6H PRN IV NAUSEA/VOMITING; Start 11/16/18 at 12:00 Acetaminophen (Tylenol Tab) 650 mg Q6H PRN PO .PAIN 1-3 OR TEMP Last administered on 11/16/18at 20:11; Admin Dose 650 MG; Start 11/16/18 at 12:00 Zolpidem Tartrate (Ambien) 5 mg QHS PRN PO .INSOMNIA Last administered on 11/17/18at 21:35; Admin Dose 5 MG; Start 11/16/18 at 12:00 Docusate Sodium (Colace) 100 mg Q12H PRN PO .CONSTIPATION; Start 11/16/18 at 12:00 Pantoprazole (Protonix Tab) 40 mg DAILY@06 PO Last administered on 11/18/18at 05:33; Admin Dose 40 MG; Start 11/17/18 at 06:00 Apixaban (Eliquis) 5 mg BID PO Last administered on 11/18/18at 08:15; Admin Dose 5 MG; Start 11/16/18 at 21:00 Morphine Sulfate (morphine) 4 mg Q2 PRN IV SEVERE PAIN LEVEL 7-10; Start 11/16/18 at 21:00 Methadone HCl (Methadone Liq (Ped)) 85 mg DAILY PO Last administered on 11/18/18at 10:59; Admin Dose 85 MG; Start 11/17/18 at 11:00 Metoprolol Succinate (Toprol Xl) 50 mg DAILY PO ; Start 11/19/18 at 09:00 Assessment/Plan Hospital Course (Demo Recall) Atrial fibrillation/flutter Cardiomyopathy/CHF 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 Continue with Toprol-XL. We will add digoxin to control the heart rate better Importance of compliant with the medication cussed with the patient Continue to monitor on telemetry Stopped IV fluids avoid fluid overload. Thank you for his referral. We will continue to follow along with you MICKY LANIER MD [facility] MICKY LANIER MD November 18, 2018 13:30
[2018-11-18] MEDS: DIGOXIN 500 MCG INJ IV SCH (13:57)
[2018-11-18] MEDS ORDERED: QUETIAPINE 25 MG TAB PO PRN (14:00)
[2018-11-18] MEDS: ZOLPIDEM 5 MG TAB PO PRN (20:44)
[2018-11-19] VITALS (9 sets, daily range): BP systolic 112–138; BP diastolic 70–85; PULSE 94–120; RESP 18–20
[2018-11-19] MEDS: PANTOPRAZOLE (EC) 40 MG TAB PO SCH (06:43)
[2018-11-19] MEDS ORDERED: METOPROLOL (XL) 25 MG TAB PO SCH (09:00)
[2018-11-19] MEDS: METHADONE (1 MG/1 ML PO SYG) PO SCH (09:09)
[2018-11-19] MEDS: APIXABAN 5 MG TABLET PO SCH (09:09)
[2018-11-19] MEDS ORDERED: DIGO125T19 PO (11:03)
[2018-11-19] MEDS ORDERED: APIX5TAB PO (11:03)
[2018-11-19] MEDS ORDERED: ACET325T33 PO (11:03)
[2018-11-19] MEDS ORDERED: PANT40TA4 PO (11:03)
[2018-11-19] MEDS ORDERED: METO-335 PO (11:03)
[2018-11-19] MEDS ORDERED: DOCU-144 PO (11:03)
[2018-11-19] MEDS ORDERED: METH5SOL3 PO (11:03)
[2018-11-19] MEDS ORDERED: ZOLP5TAB PO (11:03)
[2018-11-19] MEDS: DIGOXIN 500 MCG INJ IV SCH (12:20)
--- NOTE | 2018-11-19 12:42 | CONS ---
Assessment/Plan Assessment/Plan Hospital Course (Demo Recall) Atrial fibrillation rapid ventricular rates-improved SIRS Chronic systolic congestive heart failure Mitral valve regurgitation Tricuspid valve regurgitation -HR trend overall stable -continue BB as kateryna and titrate as needed Consultation Date/Type/Reason Admit Date/Time November 16, 2018 at 11:30 Initial Consult Date Type of Consult Cardiology Date/Time of Note DATE: 11/19/18 TIME: 12:42 24 HR Interval Summary Free Text/Dictation Denies shortness of breath, palpitations. Feeling better Exam/Review of Systems Vital Signs Vitals Vital Signs Date Temp Pulse Resp B/P (MAP) Pulse Ox O2 O2 Flow FiO2 Time Delivery Rate 11/19/18 98.0 101 20 119/76 96 Nasal 11:40 (90) Cannula 11/18/18 08:30 Intake and Output 11/18/18 11/18/18 11/19/18 1515:00 23:00 07:00 IntakeIntake Total 1200 ml 200 ml OutputOutput Total 300 ml BalanceBalance 1200 ml -100 ml Exam Constitutional: alert (nad, following coommands) Head: normocephalic Respiratory: other (course bs, no wheeze) Cardiovascular: irregular rhythm (s1s2) Gastrointestinal: soft, non-tender, bowel sounds Extremities: edema (trace) Labs Result Diagram: 11/19/18 0547 11/19/18 0547 Results 24hrs Laboratory Tests Test 11/19/18 05:47 White Blood Count 7.3 Red Blood Count 4.91 Hemoglobin 12.7 Hematocrit 41.3 Mean Corpuscular Volume 84.1 Mean Corpuscular Hemoglobin 25.9 L Mean Corpuscular Hemoglobin Concent 30.8 L Red Cell Distribution Width 25.4 H Platelet Count 286 Mean Platelet Volume 8.6 Immature Granulocytes % 0.400 Neutrophils % 75.3 Lymphocytes % 13.3 L Monocytes % 8.9 Eosinophils % 1.8 Basophils % 0.3 Nucleated Red Blood Cells % 0.0 Immature Granulocytes # 0.030 Neutrophils # 5.5 Lymphocytes # 1.0 Monocytes # 0.7 Eosinophils # 0.1 Basophils # 0.0 Nucleated Red Blood Cells # 0.0 Sodium Level 141 Potassium Level 3.4 L Chloride Level 108 Carbon Dioxide Level 29 Anion Gap 4 L Blood Urea Nitrogen 22 H Creatinine 0.90 Est Glomerular Filtrat Rate mL/min Glucose Level 76 Calcium Level 8.2 L Magnesium Level 1.7 Total Bilirubin 0.6 Direct Bilirubin 0.00 Indirect Bilirubin 0.6 Aspartate Amino Transf (AST/SGOT) 310 H Alanine Aminotransferase (ALT/SGPT) 452 H Alkaline Phosphatase 72 B-Type Natriuretic Peptide 6220 H Total Protein 5.5 L Albumin 2.4 L Globulin 3.10 Albumin/Globulin Ratio 0.77 Triglycerides Level 96 Cholesterol Level 87 L LDL Cholesterol, Calculated 52 HDL Cholesterol 16 L Cholesterol/HDL Ratio 5.4 Medications Medications Current Medications IV Flush (NS 3 ml) 3 ml PER PROTOCOL IV ; Start 11/16/18 at 12:00 Ondansetron HCl (Zofran Inj) 4 mg Q6H PRN IV NAUSEA/VOMITING; Start 11/16/18 at 12:00 Acetaminophen (Tylenol Tab) 650 mg Q6H PRN PO .PAIN 1-3 OR TEMP Last administered on 11/16/18 20:11; Admin Dose 650 MG; Start 11/16/18 at 12:00 Zolpidem Tartrate (Ambien) 5 mg QHS PRN PO .INSOMNIA Last administered on 11/18/18 20:44; Admin Dose 5 MG; Start 11/16/18 at 12:00 Docusate Sodium (Colace) 100 mg Q12H PRN PO .CONSTIPATION; Start 11/16/18 at 12:00 Pantoprazole (Protonix Tab) 40 mg DAILY@06 PO Last administered on 11/19/18 06:43; Admin Dose 40 MG; Start 11/17/18 at 06:00 Apixaban (Eliquis) 5 mg BID PO Last administered on 11/19/18 09:09; Admin Dose 5 MG; Start 11/16/18 at 21:00 Morphine Sulfate (morphine) 4 mg Q2 PRN IV SEVERE PAIN LEVEL 7-10; Start 11/16/18 at 21:00 Methadone HCl (Methadone Liq (Ped)) 85 mg DAILY PO Last administered on 11/19/18 09:09; Admin Dose 85 MG; Start 11/17/18 at 11:00 Metoprolol Succinate (Toprol Xl) 50 mg DAILY PO Last administered on 11/19/18 09:09; Admin Dose 50 MG; Start 11/19/18 at 09:00 Digoxin (Digoxin) 125 mcg DAILY@13 IV Last administered on 11/19/18 12:20; Admin Dose 125 MCG; Start 11/18/18 at 13:30 Quetiapine Fumarate (Seroquel) 25 mg Q4 PRN PO AGITATION/ANXIETY; Start 11/18/18 at 14:00 David Benitez DO November 19, 2018 12:42
--- NOTE | 2018-11-19 13:19 | DS ---
DATE OF ADMISSION: 11/16/2018 DATE OF DISCHARGE: 11/19/2018 DISCHARGE DIAGNOSES: 1. Atrial fibrillation with rapid ventricular rate, rate controlled. 2. Chronic obstructive pulmonary disease. 3. Hypertension. 4. Gout. 5. Narcotic dependent, on methadone. 6. Chronic pain syndrome. 7. Chronic debilitation, requiring physical therapy. HOSPITAL COURSE: A 73-year-old female with multiple other medical problems including COPD, and a yanci g history of tobacco use, as well as methadone dependent, presented with a complaint of ground level fall. There was no head trauma, no evidence of fracture. Initially, the findings were consistent wi th sepsis. However, no source of infection was identified. The patient was found to be in rapid atrial fibrillation. She was seen in consultation by cardiology . Eliquis was increased to 5 mg p.o. b.i.d. Toprol was increased to 50 mg daily. Digoxin was added . Heart rate was well controlled. Patient did poorly with physical therapy. She would clearly bene fit from rehabilitation in a skilled facility. The patient is agreeable to the plan. MEDICATIONS UPON DISCHARGE: 1. Eliquis 5 mg p.o. b.i.d. 2. Digoxin 125 mcg p.o. daily. 3. Toprol-XL 50 mg p.o. daily. 4. Methadone 85 mg p.o. daily. 5. Colace 100 mg p.o. b.i.d. 6. Ambien 5 mg p.o. at bedtime as needed. 7. Colchicine 0.6 mg p.o. daily. 8. Trazodone 100 mg p.o. at bedtime. 9. Triamterene/hydrochlorothiazide 1 tablet daily. 10. Venlafaxine-ER 150 mg daily. 11. Continue physical therapy. 12. Follow up with PCP and cardiology after discharge from the skilled facility. Dictated By: HETAL GOODRICH/TAWANNA Conf#: [id number] DID#: [id number] CC: JAS TYLER DO;*EndCC*
[2018-11-20] MEDS ORDERED: METHADONE 1 MG/ML (ORAL SOLN) PO SCH (09:00)
== END 2018-11-19 17:48 | DRG 308 ==
LOC: MERGE 09:24 → E/R 09:24 → 6WM 11:30
PROVIDERS: ADMIT Internal Medicine; ATTEND Internal Medicine
DX: I48.91 Unspecified atrial fibrillation (principal); R65.11 Systemic inflammatory response syndrome (SIRS) of non-infectious origin with acute organ dysfunction; I50.43 Acute on chronic combined systolic (congestive) and diastolic (congestive) heart failure; G93.40 Encephalopathy, unspecified; F11.20 Opioid dependence, uncomplicated; E87.2 Acidosis; I11.0 Hypertensive heart disease with heart failure; J44.9 Chronic obstructive pulmonary disease, unspecified; M10.9 Gout, unspecified; G89.4 Chronic pain syndrome; I08.1 Rheumatic disorders of both mitral and tricuspid valves; I48.92 Unspecified atrial flutter; I42.9 Cardiomyopathy, unspecified; F17.200 Nicotine dependence, unspecified, uncomplicated; Z91.14 Patient's other noncompliance with medication regimen; Z96.651 Presence of right artificial knee joint
CPT/HCPCS: 36415; 71045; 76705; 80053; 80061; 83036; 83605; 83735; 83880; 84484; 84560; 85025; 85610; 85730; 86709; 86803; 87340; 93005; 96374; 96375; 97163; 97165; 97530; J0456; J0696; J2543; J7030